=== PATIENT | male | born 1995 | race Caucasian/White ===

== ENCOUNTER 2021-03-05 10:04 | Outpatient (REF) | payer MEDICAID, SELFPAY ==
--- NOTE | ~2021-03-05 | XR_ITS ---
EXAMINATION: XR HAND, RIGHT CLINICAL INFORMATION: Pain. Question cyst back of hand. COMPARISON: None TECHNIQUE: PA, lateral, and oblique views of the right hand. FINDINGS: The bones and soft tissues are normal. No fracture. Alignment is anatomic. Joint spaces are maintained. No erosions or soft tissue calcifications. XR/XR hand RT min 3V IMPRESSION: Normal right hand.
== END 2021-03-05 10:05 | disposition home or self-care (01) ==
LOC: HO.XRAY 10:04
PROVIDERS: PCP Nurse Practitioner Primary Care; Visit Provider Nurse Practitioner Primary Care
DX: M79.641 Pain in right hand (principal)
CPT/HCPCS: 73130

== ENCOUNTER → 2021-03-28 10:58 | Outpatient (BNVA) | payer MEDICAID, SELFPAY | PROVIDERS: PCP Nurse Practitioner Primary Care; Visit Provider Orthopaedic Surgery | DX: R22.31 Localized swelling, mass and lump, right upper limb (principal) | CPT/HCPCS: 99202 ==

== ENCOUNTER 2021-04-02 05:51 | Day surgery (SDC) | payer MEDICAID, SELFPAY ==
--- NOTE | 2021-03-30 10:10 | HO.ANESPROP2 ---
Documented by User: Morelia English NP 03/30/21 10:11 HPI - Anesthesia Eval Consult details Narrative: 26yo M for Right Excisional Biopsy of Small Finger Mass PMFSH Active Problems Active Problems: All Active Problems (Updated 03/28/21 @ 11:32 by Aaliyah Carter MD) Mass of finger of right hand (Acute) Past Medical History Medical History (Updated 04/02/21 @ 09:43 by Nina Pace MD) Migraine Surgical History Surgical History (Updated 04/02/21 @ 09:44 by Nina Pace MD) H/O tooth extraction Social History Social History Patient Tobacco Use Status: Never used Tobacco Second Hand Smoke Exposure: No Use of substances other than those prescribed or required for medical reasons: No Are you DNR?: No Advance Directives: No Advance Directives Information Provided: Yes Advance Directives on File: No Current occupational status: unemployed Current occupation: ambidextrous but more right handed. Meds Allergies Allergy/AdvReac Type Severity Reaction Status Date / Time amoxicillin Allergy Hives Verified 04/02/21 08:46 Home Medications Medication Instructions Recorded Confirmed Last Taken Type sumatriptan succinate 100 mg tablet 100 mg PO Q2-4H PRN 03/28/21 Unknown History Exam Exam Date and Time: March 30, 2021 1010 Assessment and Plan Assessment Anesthesia Assessment: Chart Reviewed Documented by User: Nina Pace MD 04/02/21 10:05 PMFSH Active Problems Active Problems: All Active Problems (Updated 03/28/21 @ 11:32 by Aaliyah Carter MD) Mass of finger of right hand (Acute) Migraines. Sumatriptan prn Past Medical History Medical History (Updated 04/02/21 @ 09:43 by Nina Pace MD) Migraine Family History Family history of problems with anesthesia: No Surgical History Surgical History (Updated 04/02/21 @ 09:44 by Nina Pace MD) H/O tooth extraction History of Problems with Anesthesia: No Social History Social History Patient Tobacco Use Status: Never used Tobacco Second Hand Smoke Exposure: No Use of substances other than those prescribed or required for medical reasons: No Are you DNR?: No Advance Directives: No Advance Directives Information Provided: Yes Advance Directives on File: No Current occupational status: unemployed Current occupation: ambidextrous but more right handed. Meds Allergies Allergy/AdvReac Type Severity Reaction Status Date / Time amoxicillin Allergy Hives Verified 04/02/21 08:46 Home Medications Medication Instructions Recorded Confirmed Last Taken Type sumatriptan succinate 100 mg tablet 100 mg PO Q2-4H PRN 03/28/21 Unknown History Exam Height,Weight and Vital Signs: Height 6 ft Weight 72.575 kg Vital Signs Temp Pulse Resp BP Pulse Ox 04/02/21 07:04 98.2 F 64 16 121/72 96 Airway Mallampati Class: II TM Dist: >3cm Neck ROM: Full Loose/Missing/Broken Teeth: Yes (Missing back- extraction ) Heart: RRR Lungs: CTAB Assessment and Plan Assessment Anesthesia Assessment: Anesthesia Plan Discussed Final Anesthetic Review Family History of Problems with Anesthesia: No History of Problems with Anesthesia: No NPO: Yes ASA Class: II Final Preanesthetic Review: No Changes in Pt Med Stat, Meds/Allgs Chart Reviewed, Consent Obtained/Reviewed and Anes Risks/Benef Reviewed Patient Risk: Low Procedure Risk: Low Assessment/Block/Sedation in SS: Assess/Block/Sedation-SS Anesthetic Plan Anesthetic Plan: GA Disposition: Standard PACU
[2021-04-02 06:54] VITALS: BMI 21.7
[2021-04-02 07:04] VITALS: BP 121/72; PULSE 64; RESP 16; TEMP 36.8; O2SAT 96
[2021-04-02] MEDS: Lactated Ringers 1,000 ML 100 ML IVCONT (07:11)
--- NOTE | 2021-04-02 08:45 | MHC.SHP ---
Pre-Procedural Eval Section A Date of Service: 04/02/21 The patient is an INPATIENT: No Changes since office visit: No Cold of Flu in the past 2 weeks, No New Medical Problems, No Changes in Medication and No Patient answered all questions The History & Physical has been completed within 30 days and I have reviewed it.: Yes Section B Chief Complaint: Localized Swelling, Mass and Lump Allergies: Allergies Allergy/AdvReac Type Severity Reaction Status Date / Time No Known Allergies Allergy Verified 03/28/21 11:08 Plan I have reviewed the history and physical and performed a pertinent physical examination on my patient. No changes have occurred unless specified.
--- NOTE | 2021-04-02 08:47 | W.PM.OPN ---
Operative Note Operative Note Date of Service: 04/02/21 Narrative: Operative Note Narrative: Preop diagnosis: 1. Right small finger soft tissue mass Postop diagnosis: Same Procedure: 1. Right small finger soft tissue mass excisional biopsy Surgeon: Aaliyah Carter MD Anesthesia: General Findings: youssef colored solid soft tissue mass adherent to the radial digital nerve of the right small finger. It measured approximately 7 mm in length and at its widest aspect was approximately 4 mm in diameter. 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 Implants: None Tourniquet time: 10 minutes EBL: 5.0 ml Specimen: right small finger radial digital nerve sheath associated tumor for histopathology Drains: None Complications: None Disposition: Brought to the recovery room in stable condition Plan: Follow-up in 10-14 days for wound check, suture removal and to check pathology Indications: The patient is a 26 year old young man with a mobile soft tissue mass at the radial base of the right small finger . The risks and benefits of operative treatment, including but not limited to risk of damage to blood vessels, nerves, tendons, infection, recurrence, persistent pain or numbness, incomplete resolution of preoperative symptoms, or need for further surgery were discussed with the patient and they wished to proceed with surgery. Procedure: Once consent was obtained patient was brought back to the operating suite and placed in the operating table in a supine position. . Perioperative antibiotics and anesthesia was administered by the anesthesia team. A tourniquet was applied to the proximal aspect of the right upper extremity and the limb was prepped and draped in a standard surgical fashion. The limb was elevated exsanguinated with Esmarch bandage and the tourniquet inflated to 250 mm of mercury for a total tourniquet time of 10 minutes. a Mily is type incision was made over the volar aspect of the patient's right small finger proximal phalanx and MCP joint area incision was made with a 15. Blade through the skin to the subcutaneous tissues using a 15. Blade. I then carefully dissected down to the level of the flexor tendon sheath and the mass. Soft tissue mass measured approximately 7-8 mm in length and was approximately for 4 mm in diameter at its widest aspect. It was directly adherent to the radial digital nerve to the small finger along its length. I used iris scissors to carefully dissect the mass from the radial digital nerve. The radial digital nerve was left intact and the mass was removed and placed on the back table to be sent for histopathology. One additional small mass measuring perhaps 3 mm in length by perhaps 2 mm in diameter was also removed and sent for histopathology. At this point the tourniquet was deflated and hemostasis obtained with a brief period of local pressure . The wound was copiously irrigated with normal saline. The skin edges were reapproximated with 5-0 nylon suture. The wound was infiltrated with some 1% lidocaine with epinephrine for postop pain control and a sterile dressing was applied. The patient appears to have tolerated the procedure well and with no complications. All digits were well vascularized conclusion of the case.
[2021-04-02 10:20] VITALS: BP 128/76; PULSE 86; RESP 16; TEMP 36.3; O2SAT 99
[2021-04-02 10:35] VITALS: BP 116/71; PULSE 89; RESP 18; O2SAT 97
[2021-04-02 10:50] VITALS: BP 125/70; PULSE 86; RESP 18; TEMP 36.2; O2SAT 96
[2021-04-02] MEDS: Acetaminophen 325 MG TABLET 650 MG PO (10:59)
== END 2021-04-02 11:47 | disposition home or self-care (01) ==
PROVIDERS: PCP Nurse Practitioner Primary Care; Visit Provider Orthopaedic Surgery
PROC: (CPT 26115; principal; 2021-04-02 08:50)
DX: R22.31 Localized swelling, mass and lump, right upper limb (principal)
CPT/HCPCS: 26115; 88304; 88305; 88341; 88342; J0330; J0690; J1100; J2250; J2405; J2765; J3010

== ENCOUNTER → 2021-04-17 13:12 | Outpatient (BNVA) | payer MEDICAID, SELFPAY | PROVIDERS: PCP Nurse Practitioner Primary Care; Visit Provider Physician Assistant | DX: R22.31 Localized swelling, mass and lump, right upper limb (principal) | CPT/HCPCS: 99212 ==

== ENCOUNTER 2022-10-30 11:01 | Outpatient (REF) | payer MEDICAID, SELFPAY | END 2022-10-30 11:02 | disposition home or self-care (01) | LOC: HO.LNP 11:01 | PROVIDERS: Visit Provider Registered Nurse | DX: Z20.822 Contact with and (suspected) exposure to COVID-19 (principal); R05.9 Cough, unspecified | CPT/HCPCS: 87636 ==

== ENCOUNTER 2023-01-27 08:08 | Emergency (ER) | payer MEDICAID, SELFPAY ==
[2023-01-27 08:17] VITALS: BP 117/80; PULSE 87; RESP 16; TEMP 36.6; O2SAT 97; BMI 24.0
--- NOTE | 2023-01-27 08:28 | ED.URI ---
HPI - URI/Sore Throat General Chief Complaint: Upper Respiratory Symptoms Stated Complaint: cough Time Seen by Provider: 01/27/23 08:27 Source: patient Mode of arrival: ambulatory Limitations: no limitations History of Present Illness HPI Narrative: 27 year old male with PMHx of migraines presents to the ED this morning with complaint of a productive cough x5 months. He states that he completed a course of azithromycin for acute bronchitis after being evaluated at [facility] 1 mo ago. He was advised to follow-up with his PCP and possibly a vault maker however states that he has not had time. Despite treatment, his cough has persisted. Reports yellow/green sputum production. No exacerbating or relieving factors. Admits to using cough drops at home without relief. Denies recent travel or long car rides, surgeries or immobilizations. Denies fever, chills, shortness of breath, wheezing, CASIANO, hemoptysis, chest pain, LE pain/ swelling. Reports remote history of asthma as a child, never required an inhaler. Denies tobacco or marijuana use. Related Data Home Medications Medication Instructions Recorded Confirmed sumatriptan succinate 100 mg tablet 100 mg PO Q2-4H PRN 03/28/21 Previous Rx's Medication Instructions Recorded fluticasone propionate 50 1 spray intranasal DAILY PRN nasal 01/27/23 mcg/actuation nasal congestion #16 grams spray,suspension (Flonase Allergy Relief) Allergies Allergy/AdvReac Type Severity Reaction Status Date / Time amoxicillin Allergy Hives Verified 04/17/21 13:14 Review of Systems Review of Systems: Constitutional: No fever, chills, fatigue, night sweats, weight changes ENT/Mouth: No ear pain, hearing loss, nasal congestion, sinus pain, rhinorrhea, sore throat Eyes: No eye pain, swelling, redness, vision changes, discharge Cardio: No chest pain, palpitations, CASIANO, orthopnea, peripheral edema Pulm: No SOB, + cough, + sputum, No wheezing, dyspnea, hemoptysis GI: No nausea, vomiting, hematemesis, abdominal pain, diarrhea, constipation, hematochezia, melena : No irregular bleeding, dysuria, frequency, urgency, hesitancy, hematuria, flank pain, urinary flow changes, urinary incontinence or retention MSK: No back pain, neck pain, joint pain, myalgias Skin: No lesions, rashes Neuro: No weakness, numbness, paresthesias, LOC, dizziness, headache All other systems reviewed and are negative. [facility] Past Medical History Attestation statement: The following information was validated with the patient. Source: old records reviewed and nursing notes reviewed Medical History Migraine Surgical History H/O tooth extraction Social History Social History Patient Tobacco Use Status: Never used Tobacco Second Hand Smoke Exposure: No Advance Directives: No Current occupational status: unemployed Current occupation: ambidextrous but more right handed. Physical Exam Vital Signs: Vital Signs: Last Vital Signs Temp 98 F 01/27/23 08:17 Pulse 87 01/27/23 08:17 Resp 16 01/27/23 08:17 BP 117/80 01/27/23 08:17 Pulse Ox 97 01/27/23 08:17 O2 Del Method Room Air 01/27/23 08:17 BMI result Body Mass Index 24.0 Vital signs stable Const: General: cooperative, healthy appearing, comfortable, no acute distress, alert and awake Orientation/consciousness: patient oriented x3 Limitations: no limitations HEENT: Head: Yes normal to inspection Ears: hearing grossly normal bilaterally General nose exam: Normal external nose present Mouth: moist mucous membranes Eyes: General: appearance normal, both eyes and all related structures Conjunctivae: conjunctivae normal Sclerae: sclerae normal Pupils: Equal, round and reactive pupils present Neck: Neck: Yes normal visual inspection, Yes no lymphadenopathy and Yes no meningeal signs Chest: Chest palpation & inspection: normal inspection of the chest and normal palpation of entire chest wall Resp: Effort & Inspection: normal respiratory effort, able to speak in complete sentences, Actively coughing Quality: actively coughing and no respiratory distress Auscultation: clear to auscultation bilaterally, no crackles, no rales, no rhonchi, no wheezes and breath sounds present Cardio: Rate: regular rate Rhythm: regular rhythm Heart sounds: S1 normal heart sound present and S2 normal heart sound present Peripheral pulses: Peripheral pulses 2+ throughout GI: Inspection: Yes normal to inspection and No distended Palpation (GI): Soft to palpation and nontender Skin: General skin exam: no rashes or lesions noted Neuro: General: patient oriented x3, gait normal, moves all extremities and no meningeal signs Cranial nerves: Yes CN's II-XII intact bilaterally and Yes Equal, round and reactive pupils present Extrem: General: Yes normal to inspection and Yes full ROM Course Course Course Narrative: 850-- COVID negative. Awaiting chest x-ray. > Case discussed with my supervising SHANTELLE Goodrich who agrees with workup. 912-- CXR without infiltrates or consolidations >no pneumonia. 930-- Discussed this case with my attending physician, Dr. Dru Howard. > on re-evaluation, patient states that she is feeling better. Informed patient of his unremarkable chest x-ray and negative COVID results. This is likely sinusitis. > will send patient home with a prescription for Flonase. Advised to take this as needed for congestion and cough. Advised patient to follow-up with his primary care provider this week. As he is afebrile, not tachycardic, am not concerned about infection. Low suspicion for PE as PERC 0> D-dimer not indicated. Educated on return precautions. Patient is agreeable with disposition. All questions answered at this time. Patient is stable for discharge. Medications Administered Discontinued Medications Generic Name Dose Route Start Last Admin Trade Name Freq PRN Reason Stop Dose Admin Hydrocodone Bit/Homatropine Methylb 5 ml 01/27/23 08:47 01/27/23 09:18 Hydrocodone/Homat 5/1.5/5 Ml 5 Ml Syrup PO 01/27/23 08:48 5 ml ONCE ONE Administration Medical Decision Making Medical Decision Making [facility] Narrative: 27 year old male with PMHx of migraines presents to the ED this morning with complaint of a productive cough x5 months. Vital signs stable, afebrile, not tachycardic. RRR, lungs CTA bilaterally, no reproducible chest wall tenderness. No respiratory distress. PERC score of 0 however due to patient's chronic cough will order D-dimer. Serology and chest x-ray ordered. Will give patient one dose of Hycodan for cough. Clinical concern for bronchitis vs viral syndrome vs pneumonia vs chronic cough vs PE. Unlikely TB, malignancy, asthma, COPD. Plan at this time and COVID serology and chest x-ray. Differential Diagnosis Differential Diagnoses: The differential diagnosis associated with the presentation includes As above. Admission/Observation Not indicated. Lab Data MDM Lab Attestation statement: I reviewed the patient's lab results. As above. Labs: Lab Results 01/27/23 Range/Units 08:23 COVID-19 ([facility]) Negative (Negative) COVID-19 Clin Com See Note Independent Interpretation I performed an independent interpretation of an: Plain X-Ray Interpretation: Chest x-ray without consolidations or infiltrates, agree with radiologist's interpretation. Radiology Impression Discussion of test interpretation with radiology: I have reviewed the radiologist's reading. Radiologist Impression: XR chest 2V IMPRESSION: No acute cardiopulmonary disease. External Record Review External record reviewed: Inpatient record, Office record, Outpatient record, Prior outpatient labs, Prior outpatient radiology, Primary care record and Outside ED record Tests considered The following testing was considered but not selected: Considered obtaining a D-dimer given the patient's chronic cough however PERC negative > not indicated. Prescription Management I considered prescription management with: Other (steroid) Critical Care Time Critical Care Time Critical Care Time: No Discharge Plan Discharge Clinical Impression: Sinusitis Patient Disposition: Home, Self-Care Instructions: Sinusitis (ED), Rhinosinusitis (ED) Additional Instructions: You tested negative for COVID today. Your chest x-ray did not show any acute pathology or pneumonia. Your symptoms are consistent with sinusitis. This does not warrant antibiotics. Flonase has been sent to your pharmacy. Use this as needed to help with congestion and cough. Please follow-up with your PCP this week. Return to the emergency department if your symptoms persist or worsen. In the case of an emergency call 911. Prescriptions: New fluticasone propionate [Flonase Allergy Relief] 50 mcg/actuation spray,suspension 1 spray intranasal DAILY PRN (Reason: nasal congestion) Qty: 16 0RF Rx Instructions: administer into each nostril No Action sumatriptan succinate 100 mg tablet 100 mg PO Q2-4H PRN Rx Instructions: do not exceed 2 doses per 24 hrs Referrals: Krystal Medina COMMUNICABLE DISEASE SPECIALIST [Primary Care Provider] - Stand Alone Forms: Work/School Release Discharge Date/Time: 01/27/23 09:52
--- NOTE | 2023-01-27 09:51 | PC.NURSE ---
PT WAS SEEN BY PROVIDER AND DISCHARGED
== END 2023-01-27 09:52 | disposition home or self-care (01) ==
PROVIDERS: Emergency Provider Emergency Medicine; PCP Nurse Practitioner Primary Care
DX: J32.9 Chronic sinusitis, unspecified (principal); R05.9 Cough, unspecified; Z20.822 Contact with and (suspected) exposure to COVID-19
CPT/HCPCS: 71046; 87635; 99282; 99283

== ENCOUNTER 2023-02-28 09:21 | Outpatient (AMB) | payer MEDICAID, SELFPAY ==
[2023-02-28 09:23] VITALS: BP 94/58; PULSE 59; O2SAT 99; BMI 24.4
--- NOTE | 2023-02-28 09:23 | MHC.OFFVIS ---
Intake Vital Signs 02/28/23 09:23 Height 5 ft 11 in Weight 175 lb 4.28 oz BMI 24.4 BP 94/58 L Blood Pressure Location Rt brachial Position Sitting Pulse 59 Pulse Source Doppler Pulse Oximetry (%) 99 Oxygen Delivery Method Room Air Intake Visit Reasons: asthma Allergies amoxicillin Allergy (Verified 02/28/23 09:25) Hives HPI asthma HPI Details 27-year-old gentleman, nonsmoker, with underlying history of childhood asthma, later resolved, now referred for evaluation of pulmonary symptoms. Patient complains of intermittent paroxysms of cough, sometimes causing vomiting ongoing for several months with no response to Zyrtec of Flonase. Patient does have family history of asthma. He also complains environmental allergies. He is employed with no exposure to industrial dusts. [facility] Medical History Migraine Surgical History H/O tooth extraction Social History Patient Tobacco Use Status: Never used Tobacco Second Hand Smoke Exposure: No Current occupational status: unemployed Current occupation: ambidextrous but more right handed. Review of Systems Const Denies daytime sleepiness, Denies excessive sweating, Denies fatigue, Denies fever(s), Denies lethargy, Denies malaise, Denies night sweats, Denies snoring and Denies weight loss Eyes Denies blurry vision and Denies itchy eyes ENT Denies nasal congestion, Denies post nasal drip, Denies sinus pain, Denies sinus pressure and Denies other ( Thrush) Card Denies chest pain, Denies pedal edema, Denies dyspnea, Denies orthopnea and Denies paroxysmal nocturnal dyspnea Resp Reports cough, Denies hemoptysis, Denies excessive phlegm production, Denies dyspnea, Denies snoring and Denies wheezing GI Denies abdominal pain and Denies heartburn Musc Denies myalgias, Denies arthralgias and Denies joint swelling Skin/Breast Denies rash Neuro Denies memory loss and Denies seizure-like activity Psych Denies abnormal sleep pattern, Denies anxiety and Denies memory loss Endo Denies excessive sweating, Denies fatigue and Denies heat intolerance Glenn/Lymph Denies easy bruising Aller/Immun Denies itchy eyes, Denies seasonal rhinorrhea and Denies wheezing Physical Exam Vital Signs: Last Vital Signs Pulse 59 02/28/23 09:23 BP 94/58 L 02/28/23 09:23 Pulse Ox 99 02/28/23 09:23 Oxygen Delivery Method Room Air 02/28/23 09:23 BMI result Body Mass Index 24.4 Const General: no acute distress and alert Nutritional Appearance: not obese Orientation/consciousness: Other orientation findings ( oriented) HEENT Head: Yes atraumatic Eyes General: appearance normal, both eyes and all related structures Sclerae: sclerae normal EOM: EOMs intact bilaterally Neck Neck: Yes supple Lymphatic: no lymphadenopathy noted Resp Effort & Inspection: normal respiratory effort and no use of accessory muscles Auscultation: clear to auscultation bilaterally Cardio Rate: regular rate Rhythm: regular rhythm Heart sounds: no gallops, no murmurs and no rubs Skin General skin exam: other ( warm) Extrem General: No clubbing, No cyanosis and No edema Assessment & Plan Assessment & Plan (1) Cough: Code(s): R05.9 - Cough, unspecified Plan: Likely cough variant asthma. Start empiric Breo. Obtain full PFT. Continue albuterol MDI. (2) Environmental allergies: Code(s): Z91.09 - Other allergy status, other than to drugs and biological substances Plan: Will check IgE level, CBC with differential, and RAST panel for further evaluation. Orders: Orders Rast Allergen Today Z91.09 - Other allergy status, other than to drugs and biological substances PFT pulmonary function test Today Z91.09 - Other allergy status, other than to drugs and biological substances Complete Blood Count Auto Diff Today Z91.09 - Other allergy status, other than to drugs and biological substances Coding Level of Care Code New Pt Level 4 (72901) Diagnoses Cough R05.9 Environmental allergies Z91.09
== END 2023-02-28 14:25 | disposition home or self-care (01) ==
PROVIDERS: PCP Nurse Practitioner Primary Care; Referring Provider Nurse Practitioner Primary Care; Visit Provider Internal Medicine Pulmonary Disease
DX: R05.9 Cough, unspecified (principal); Z91.09 Other allergy status, other than to drugs and biological substances
CPT/HCPCS: 99204

== ENCOUNTER 2023-02-28 09:21 | Outpatient (REF) | payer MEDICAID, SELFPAY ==
[2023-02-28 10:07] LABS: MANUAL DIFF FLAG NO
[2023-02-28 11:05] LABS: Basophils Absolute Auto 0.1 X10*3/uL (0.0-0.2); Basophils Percent Auto 0.9 % (0-2); Eosinophils Absolute Auto 0.3 X10*3/uL (0.0-0.4); Eosinophils Percent Auto 5.9 % (0-4); Hematocrit 45.6 % (42.0-52.0); Hemoglobin 15.6 g/dl (14.0-18.0); Imm Gran Abs Auto 0.08 X10*3/uL (0.00-0.03); Imm Gran Pct Auto 1.4 % (0.0-0.4); Lymphocytes Absolute Auto 1.8 X10*3/uL (1.2-4.9); Lymphocytes Percent Auto 32.7 % (20-40); Mean Corpuscular HGB Conc 34.2 g/dl (31.0-36.0); Mean Corpuscular Hemoglobin 30.6 pg (27.0-33.0); Mean Corpuscular Volume 89.6 fL (80.0-98.0); Mean Platelet Volume 11.6 fL (9.4-12.4); Monocytes Absolute Auto 0.6 X10*3/uL (0.1-1.2); Monocytes Percent Auto 9.8 % (2-11); Neutrophils Absolute Auto 2.8 x10*3/uL (2.0-8.3); Neutrophils Percent Auto 49.3 % (45-73); Platelet Count 192 X10*3/uL (160-400); Red Blood Count 5.09 X10*6/uL (4.60-5.80); Red Cell Distribution Width 12.2 % (11.0-16.0); White Blood Count 5.6 X10*3/uL (4.8-10.8)
== END 2023-02-28 09:22 | disposition home or self-care (01) ==
LOC: HO.LAB 09:21
PROVIDERS: PCP Nurse Practitioner Primary Care; Referring Provider Nurse Practitioner Primary Care; Visit Provider Internal Medicine Pulmonary Disease
DX: R05.9 Cough, unspecified (principal); Z91.09 Other allergy status, other than to drugs and biological substances
CPT/HCPCS: 36415; 82785; 85025; 86003; 99202

== ENCOUNTER 2023-04-03 09:32 | Outpatient (REF) | payer MEDICAID, SELFPAY ==
--- NOTE | 2023-04-03 10:26 | PFT_ITS ---
Flows: FEV1: 102 % of predicted at 4.76 L FVC: 101 % of predicted at 5.83 L FEV1/FVC: 82 % Bronchodilator response: Absent Volumes: Total lung capacity: 95 % of predicted at 6.97 L Residual volume: 76 % of predicted at 1.17 L Slow vital capacity: 101 % of predicted at 1.29 L Expiratory reserve volume: 70 % of predicted at 1.29 L Diffusion capacity: Normal Impression: No obstructive or restrictive ventilatory defect. No bronchodilator response. Essentially normal pulmonary function test. MTDD
== END 2023-04-03 09:33 | disposition home or self-care (01) ==
LOC: HO.RESP 09:32
PROVIDERS: PCP Nurse Practitioner Primary Care; Visit Provider Internal Medicine Pulmonary Disease
DX: Z91.09 Other allergy status, other than to drugs and biological substances (principal)
CPT/HCPCS: 94010; 94727; 94729

== ENCOUNTER → 2023-04-03 10:09 | Outpatient (BNV) | payer MEDICAID, SELFPAY | PROVIDERS: PCP Nurse Practitioner Primary Care; Visit Provider Internal Medicine Pulmonary Disease | DX: Z91.09 Other allergy status, other than to drugs and biological substances (principal) | CPT/HCPCS: 94060; 94727; 94729 ==

== ENCOUNTER 2023-06-12 10:14 | Outpatient (AMB) | payer MEDICAID, SELFPAY ==
[2023-06-12 10:16] VITALS: BP 108/72; PULSE 70; O2SAT 97; BMI 24.6
--- NOTE | 2023-06-12 10:16 | A.OFFVIS_ITS ---
Intake Vital Signs 06/12/23 10:16 Height 5 ft 11 in Weight 176 lb 5.917 oz BMI 24.6 BP 108/72 Blood Pressure Location Lt brachial Pulse 70 Pulse Source Doppler Pulse Oximetry (%) 97 Oxygen Delivery Method Room Air Intake Visit Reasons: Asthma Allergies amoxicillin Allergy (Verified 06/12/23 10:21) Hives HPI Asthma HPI Details 27-year-old gentleman, nonsmoker, with u nderlying history of childhood asthma, later resolved, now referred for evaluation of pulmonary symptoms. Patient complains of intermittent paroxysms of cough, sometimes causing vomiting ongoing for several months with no response to Zyrtec of Flonase. Patient does have family history of asthma. He also complains environmental allergies. He is employed with no exposure to industrial dusts. After the last visit patient started on Breo 200 with significant improvement, but still incomplete control of his symptoms. He has significant eosinophilia on CBC. [facility] Medical History Migraine Surgical History H/O tooth extraction Social History Patient Tobacco Use Status: Never used Tobacco Second Hand Smoke Exposure: No Current occupational status: unemployed Current occupation: ambidextrous but more right handed. Review of Systems Const Denies daytime sleepiness, Denies excessive sweating, Denies fatigue, Denies fever(s), Denies lethargy, Denies malaise, Denies night sweats, Denies snoring and Denies weight loss Eyes Denies blurry vision and Denies itchy eyes ENT Reports nasal congestion, Denies post nasal drip, Denies sinus pain, Denies sinus pressure and Denies other ( Thrush) Card Denies chest pain, Denies pedal edema, Denies dyspnea, Denies orthopnea and Denies paroxysmal nocturnal dyspnea Resp Denies cough, Denies hemoptysis, Denies excessive phlegm production, Denies dyspnea, Denies snoring and Denies wheezing GI Denies abdominal pain and Denies heartburn Musc Denies myalgias, Denies arthralgias and Denies joint swelling Skin/Breast Denies rash Neuro Denies memory loss and Denies seizure-like activity Psych Denies abnormal sleep pattern, Denies anxiety and Denies memory loss Endo Denies excessive sweating, Denies fatigue and Denies heat intolerance Glenn/Lymph Denies easy bruising Aller/Immun Denies itchy eyes, Denies seasonal rhinorrhea and Denies wheezing Physical Exam Vital Signs: Last Vital Signs Pulse 70 06/12/23 10:16 BP 108/72 06/12/23 10:16 Pulse Ox 97 06/12/23 10:16 Oxygen Delivery Method Room Air 06/12/23 10:16 BMI result Body Mass Index 24.6 Const General: no acute distress and alert Nutritional Appearance: not obese Orientation/consciousness: Other orientation findings ( oriented) HEENT Head: Yes atraumatic Eyes General: appearance normal, both eyes and all related structures Sclerae: sclerae normal EOM: EOMs intact bilaterally Neck Neck: Yes supple Lymphatic: no lymphadenopathy noted Resp Effort & Inspection: normal respiratory effort and no use of accessory muscles Auscultation: clear to auscultation bilaterally Cardio Rate: regular rate Rhythm: regular rhythm Heart sounds: no gallops, no murmurs and no rubs Skin General skin exam: other ( warm) Extrem General: No clubbing, No cyanosis and No edema Assessment & Plan Assessment & Plan (1) Cough variant asthma: Code(s): J45.991 - Cough variant asthma Plan: Improving but still suboptimal control on Breo. Continue Breo and albuterol MDI. Will request Fasenra approval. (2) Environmental allergies: Code(s): Z91.09 - Other allergy status, other than to drugs and biological substances Plan: Expect to improve on Fasenra. Coding Level of Care Code Est Pt Level 4 (07734) Diagnoses Cough variant asthma J45.991 Environmental allergies Z91.09
== END 2023-06-12 10:30 | disposition home or self-care (01) ==
PROVIDERS: PCP Nurse Practitioner Primary Care; Visit Provider Internal Medicine Pulmonary Disease
DX: J45.991 Cough variant asthma (principal); Z91.09 Other allergy status, other than to drugs and biological substances
CPT/HCPCS: 99214

== ENCOUNTER → 2023-06-12 10:14 | Outpatient (BNVA) | payer MEDICAID, SELFPAY | PROVIDERS: PCP Nurse Practitioner Primary Care; Visit Provider Internal Medicine Pulmonary Disease | DX: J45.991 Cough variant asthma (principal); Z91.09 Other allergy status, other than to drugs and biological substances | CPT/HCPCS: 99212 ==